=== PATIENT | female | born 1980 | race Hispanic/Latino ===

== ENCOUNTER 2018-11-10 05:26 | Emergency (ER) | payer OTHER ==
[2018-11-10 07:11] LABS: Absolute Lymphocytes (CBC) 0.7 K/uL (0.7-4.9); Absolute Monocytes 0.5 K/uL (0.1-1.3); Absolute Neutrophil 3.8 K/uL (1.8-8.0); Basophils % 0.2 % (0-1.3); Eosinophils % 1.6 % (0-4.4); Hematocrit 35.7 % (36.0-45.0); Lymphocytes % 14.1 % (15.3-44.8); MPV 9.3 fL (7.6-11.3); Monocytes % 9.5 % (3.3-12.3); RBC Red Blood Cell Count 3.97 M/uL (3.86-4.86)
[2018-11-10] MEDS ORDERED: ONDANSETRON 4 MG/2 ML VIAL ONE (07:11)
[2018-11-10] MEDS ORDERED: NA CHLORIDE 0.9% 1,000 ML ONE (07:11)
[2018-11-10 07:23] LABS: ALT/SGPT 17 U/L (12-78); AST/SGOT 14 U/L (15-37); Albumin 3.1 g/dL (3.4-5.0); Alkaline Phosphatase 58 U/L (45-117); BUN Blood Urea Nitrogen 12 mg/dL (7-18); Bicarbonate 26 mmol/L (21-32); Bilirubin Direct < 0.1 mg/dL (0-0.2); Bilirubin Total 0.2 mg/dL (0.2-1.0); Glucose Level 96 mg/dL (74-106); Lipase 62 U/L (73-393); Protein, Total 6.3 g/dL (6.4-8.2); Sodium Level 141 mmol/L (136-145)
[2018-11-10 08:21] LABS: Urine Blood 2+ (NEG); Urine Glucose NEGATIVE (NEG); Urine Protein NEGATIVE (NEG)
--- NOTE | 2018-11-10 09:11 | RAD REPORT ---
EXAM DESCRIPTION: CT - Abdomen Pelvis W Contrast - 11/10/2018 8:26 am CLINICAL HISTORY: Abdominal pain with nausea. COMPARISON: none. TECHNIQUE: Computed axial tomography of the abdomen pelvis was obtained. 100 cc Isovue-300 was admin istered intravenously. Oral contrast was not requested which limits evaluation of bowel. All CT scans are performed using dose optimization technique as appropriate and may include automated exposure control or mA/KV adjustment according to patient size. FINDINGS: The liver, spleen, pancreas, adrenal and left kidney appear unremarkable. A 1 millimeter nonobstructing right renal calculus There is no evidence of diverticulitis. 2 centimeter left ovarian cyst without significant free fluid IMPRESSION: 2 centimeter left ovarian cyst without significant free fluid
--- NOTE | 2018-11-10 09:22 | ER ---
Nurse's Notes [facility] Name: Ba Baxter Age: 38 yrs Sex: Female : 1980 Arrival Date: 11/10/2018 Time: 05:30 Bed 16 Private MD: Diagnosis: Constipation;Abdominal and pelvic pain Presentation: 11/10 05:30 Method Of Arrival: Ambulatory 05:30 Presenting complaint: Patient states: that on she started to have upper abd pain, fc decreased appetite, nausea, fatigue and vertigo. Has gotten worse. Just completed Macrobid 4 days ago for UTI. Transition of care: patient was not received from another setting of care. Onset of symptoms was November 08, 2018. Risk Assessment: Do you want to hurt yourself or someone else? Patient reports no desire to harm self or others. Initial Sepsis Screen: Does the patient meet any 2 criteria?. Care prior to arrival: on took Imodium, Pepto and Enema. and on Wed. took Pepto. 05:30 Acuity: BALDEV 3 07:24 Initial Sepsis Screen: Does the patient have a suspected source of infection? No. ls4 Patient's initial sepsis screen is negative. DISCHARGE SPECIALIST: 05:30 [facility] 10/29/2018 fc Historical: - Allergies: 05:58 No Known Allergies; fc - Home Meds: 05:58 Tecfidera 240 mg oral cpDR 1 cap 2 times per day [Active]; baclofen 20 mg Oral tab 2 fc tab nightly [Active]; Ambien 10 mg Oral tab 1 tab nightly [Active]; OxyContin 15 mg Oral TR12 1 tab every 12 hours [Active]; hydrocodone-acetaminophen 10-325 mg Oral tab 1 tab q 4 hrs prn [Active]; - PMHx: 05:58 Multiple Sclerosis; MVP; Depression; Neurogenic Bladder; fc - PSHx: 05:58 back surg; fc - Immunization history:: Last tetanus immunization: unknown, Flu vaccine is up to date. - Social history:: Smoking status: Patient/guardian denies using tobacco, Patient uses alcohol, occasionally. - Ebola Screening: : Patient negative for fever greater than or equal to 101.5 degrees Fahrenheit, and additional compatible Ebola Virus Disease symptoms Patient denies exposure to infectious person Patient denies travel to an Ebola-affected area in the 21 days before illness onset. Screenin:55 Abuse screen: Denies threats or abuse. Nutritional screening: No deficits noted. fc Tuberculosis screening: No symptoms or risk factors identified. Fall Risk None identified. Assessment: 06:50 General: Appears uncomfortable, Behavior is calm, cooperative. Pain: Complains of pain ed1 in right upper quadrant and left upper quadrant Pain currently is 9 out of 10 on a pain scale. Pain began 2-3 days ago. Neuro: Level of Consciousness is awake, alert, obeys commands, Oriented to person, place, time, situation, Reports dizziness. Cardiovascular: Denies chest pain, Heart tones S1 S2 present. Respiratory: Airway is patent Respiratory effort is even, unlabored, Respiratory pattern is regular, symmetrical, Breath sounds are clear bilaterally. GI: Abdomen is non-distended, Bowel sounds present X 4 quads. Abd is soft and non tender X 4 quads. Reports upper abdominal pain, nausea. : Reports completing Macrobid for UTI. EENT: No signs and/or symptoms were reported regarding the EENT system. Derm: Skin is intact, is healthy with good turgor, Skin is dry, Skin is normal, Skin temperature is warm. Musculoskeletal: Circulation, motion, and sensation intact. Vital Signs: 05:30 BP 102 / 57; Pulse 74; Resp 17; Temp 98(O); Pulse Ox 100% on R/A; Weight 68.04 kg (R); ed1 Height 5 ft. 5 in. (165.10 cm) (R); Pain 9/10; 08:57 BP 89 / 40; Pulse 66; Resp 16; Pulse Ox 99% ; ls4 05:30 Body Mass Index 24.96 (68.04 kg, 165.10 cm) ed1 ED Course: 05:30 Patient arrived in ED. es 05:30 Arm band placed on Patient placed in an exam room, on a stretcher. fc 05:46 Carmel Boyer, RN is Primary Nurse. ed1 05:54 Triage completed. fc 05:55 Patient has correct armband on for positive identification. Placed in gown. Bed in low fc position. Call light in reach. 05:55 No provider procedures requiring assistance completed. fc 06:05 Terrell Lion PA is PHCP. jr8 06:05 Iron Najera MD is Attending Physician. jr8 07:02 Primary Nurse role handed off by Carmel Boyer, RN ed1 07:05 Vivian Mccullough, RN is Primary Nurse. ls4 08:25 CT Abd/Pelvis - W/Contrast In Process Unspecified. EDMS 08:25 CT completed. Patient tolerated procedure well. Patient moved to CT via wheelchair. jg6 Patient moved back from CT. 08:58 Inserted saline lock: 22 gauge in left antecubital area, using aseptic technique. ls4 09:29 IV discontinued, intact, bleeding controlled, No redness/swelling at site. Pressure ls4 dressing applied. Administered Medications: 07:05 Drug: Zofran 4 mg Route: IVP; Site: right forearm; ls4 08:59 Follow up: Response: No adverse reaction; Marked relief of symptoms ls4 07:05 Drug: NS 0.9% 1000 ml Route: IV; Rate: 1000 ml; Site: right forearm; ls4 08:58 Follow up: IV Status: Completed infusion; IV Intake: 1000ml ls4 Intake: 08:58 IV: 1000ml; Total: 1000ml. ls4 Outcome: 09:21 Discharge ordered by . jr8 09:29 Discharged to home ambulatory, with family. ls4 09:29 Condition: stable 09:29 Discharge instructions given to patient, family, Instructed on discharge instructions, follow up and referral plans. medication usage, Demonstrated understanding of instructions, follow-up care, medications. 09:30 Patient left the ED. ls4 Signatures: Dispatcher [employer] Kaylen Brand Felicia, RN RN Carmel Boyer RN RN ed1 Terrell Lion PA PA jr8 Olga Cifuentes jg6 Vivian Mccullough, RN RN ls4 Corrections: (The following items were deleted from the chart) 05:56 05:30 68.04 kg Reported; Height 5 ft. 5 in. Reported; BMI: 24.9; Pain 9/10; ed1
--- NOTE | 2018-11-10 09:23 | EDPHYS ---
Physician Documentation [facility] Name: Ba Baxter Age: 38 yrs Sex: Female : 1980 Arrival Date: 11/10/2018 Time: 05:30 Bed 16 Private MD: ED Physician Iron Najera HPI: 11/10 08:52 This 38 yrs old Female presents to ER via Ambulatory with complaints of jr8 Abdominal Pain, Nausea, Vertigo, fatigue. 08:52 The patient presents with abdominal pain in the upper abdomen. Onset: The jr8 symptoms/episode began/occurred acutely, 3 day(s) ago, and became worse and became persistent. The symptoms do not radiate. Associated signs and symptoms: Pertinent positives: nausea and vomiting, constipation. The symptoms are described as crampy, waxing/waning. Modifying factors: The symptoms are alleviated by nothing, the symptoms are aggravated by nothing. Severity of pain: At its worst the pain was moderate in the emergency department the pain has improved mildly. The patient has not experienced similar symptoms in the past. The patient has not recently seen a physician. [employer]: 05:30 LMP 10/29/2018 fc Historical: - Allergies: 05:58 No Known Allergies; fc - Home Meds: 05:58 Tecfidera 240 mg oral cpDR 1 cap 2 times per day [Active]; baclofen 20 mg Oral tab 2 fc tab nightly [Active]; Ambien 10 mg Oral tab 1 tab nightly [Active]; OxyContin 15 mg Oral TR12 1 tab every 12 hours [Active]; hydrocodone-acetaminophen 10-325 mg Oral tab 1 tab q 4 hrs prn [Active]; - PMHx: 05:58 Multiple Sclerosis; MVP; Depression; Neurogenic Bladder; fc - PSHx: 05:58 back surg; fc - Immunization history:: Last tetanus immunization: unknown, Flu vaccine is up to date. - Social history:: Smoking status: Patient/guardian denies using tobacco, Patient uses alcohol, occasionally. - Ebola Screening: : Patient negative for fever greater than or equal to 101.5 degrees Fahrenheit, and additional compatible Ebola Virus Disease symptoms Patient denies exposure to infectious person Patient denies travel to an Ebola-affected area in the 21 days before illness onset. ROS: 08:52 Eyes: Negative for injury, pain, redness, and discharge, ENT: Negative for injury, jr8 pain, and discharge, Neck: Negative for injury, pain, and swelling, Cardiovascular: Negative for chest pain, palpitations, and edema, Respiratory: Negative for shortness of breath, cough, wheezing, and pleuritic chest pain, Back: Negative for injury and pain, MS/Extremity: Negative for injury and deformity, Skin: Negative for injury, rash, and discoloration, Neuro: Negative for headache, weakness, numbness, tingling, and seizure. 08:52 Abdomen/GI: Positive for abdominal pain, nausea and vomiting, constipation, abdominal cramps, Negative for abdominal distension, anorexia, dysphagia, hematemesis, black/tarry stool, rectal pain, rectal bleeding, bowel incontinence, flatulence. Exam: 08:52 Eyes: Pupils equal round and reactive to light, extra-ocular motions intact. Lids and jr8 lashes normal. Conjunctiva and sclera are non-icteric and not injected. Cornea within normal limits. Periorbital areas with no swelling, redness, or edema. ENT: Nares patent. No nasal discharge, no septal abnormalities noted. Tympanic membranes are normal and external auditory canals are clear. Oropharynx with no redness, swelling, or masses, exudates, or evidence of obstruction, uvula midline. Mucous membranes moist. Neck: Trachea midline, no thyromegaly or masses palpated, and no cervical lymphadenopathy. Supple, full range of motion without nuchal rigidity, or vertebral point tenderness. No Meningismus. Cardiovascular: Regular rate and rhythm with a normal S1 and S2. No gallops, murmurs, or rubs. Normal PMI, no JVD. No pulse deficits. Respiratory: Lungs have equal breath sounds bilaterally, clear to auscultation and percussion. No rales, rhonchi or wheezes noted. No increased work of breathing, no retractions or nasal flaring. Back: No spinal tenderness. No costovertebral tenderness. Full range of motion. Skin: Warm, dry with normal turgor. Normal color with no rashes, no lesions, and no evidence of cellulitis. MS/ Extremity: Pulses equal, no cyanosis. Neurovascular intact. Full, normal range of motion. Neuro: Awake and alert, GCS 15, oriented to person, place, time, and situation. Cranial nerves II-XII grossly intact. Motor strength 5/5 in all extremities. Sensory grossly intact. Cerebellar exam normal. Normal gait. 08:52 Abdomen/GI: Inspection: abdomen appears normal, Bowel sounds: active, all quadrants, Palpation: soft, in all quadrants, mild abdominal tenderness, in the right lower quadrant and left lower quadrant and mid abdomen just superior to umbilicus region, mass, is not appreciated, rebound tenderness, is not appreciated, voluntary guarding, is not appreciated, involuntary guarding, is not appreciated, no appreciated organomegaly, Indicators: McBurney's point is not tender, Jacobo's sign is negative, Rovsing's sign is negative, Liver: tenderness, is not appreciated. Vital Signs: 05:30 BP 102 / 57; Pulse 74; Resp 17; Temp 98(O); Pulse Ox 100% on R/A; Weight 68.04 kg (R); ed1 Height 5 ft. 5 in. (165.10 cm) (R); Pain 9/10; 08:57 BP 89 / 40; Pulse 66; Resp 16; Pulse Ox 99% ; ls4 05:30 Body Mass Index 24.96 (68.04 kg, 165.10 cm) ed1 MDM: 06:18 Patient medically screened. jr8 09:22 Differential diagnosis: bowel obstruction, cholecystitis, Cholelithiasis, jr8 diverticulitis, gastritis, gastroesophageal reflux disease, non-specific abd pain, pancreatitis, Ureterolithiasis. Data reviewed: vital signs, nurses notes, lab test result(s), radiologic studies, CT scan. Data interpreted: Pulse oximetry: on room air is 99 %. Interpretation: normal. Counseling: I had a detailed discussion with the patient and/or guardian regarding: the historical points, exam findings, and any diagnostic results supporting the discharge/admit diagnosis, lab results, radiology results, the need for outpatient follow up, a family practitioner, a java security engineer, to return to the emergency department if symptoms worsen or persist or if there are any questions or concerns that arise at home. Response to treatment: the patient's symptoms have markedly improved after treatment. 11/10 06:36 Order name: Basic Metabolic Panel; Complete Time: 07:47 11/10 06:36 Order name: CBC with Diff; Complete Time: 07:47 11/10 06:36 Order name: Creatinine for Radiology; Complete Time: 07:47 11/10 06:36 Order name: Hepatic Function; Complete Time: 07:47 11/10 06:36 Order name: Lipase; Complete Time: 07:47 11/10 07:59 Order name: Urine Dipstick--Ancillary (enter results); Complete Time: 08:29 11/10 06:36 Order name: IV Saline Lock; Complete Time: 07:58 11/10 06:36 Order name: Labs collected and sent; Complete Time: 07:58 11/10 06:36 Order name: Urine Test (obtain specimen); Complete Time: 07:58 11/10 06:36 Order name: Urine Dipstick-Ancillary (obtain specimen); Complete Time: 07:58 11/10 07:59 Order name: Urine --Ancillary (enter results); Complete Time: 08:29 11/10 08:10 Order name: CT Abd/Pelvis - W/Contrast; Complete Time: 09:13 jr8 Administered Medications: 07:05 Drug: Zofran 4 mg Route: IVP; Site: right forearm; ls4 08:59 Follow up: Response: No adverse reaction; Marked relief of symptoms ls4 07:05 Drug: NS 0.9% 1000 ml Route: IV; Rate: 1000 ml; Site: right forearm; ls4 08:58 Follow up: IV Status: Completed infusion; IV Intake: 1000ml ls4 Disposition: 11/10/18 09:21 Discharged to Home. Impression: Constipation, Abdominal and pelvic pain. - Condition is Stable. - Discharge Instructions: Abdominal Pain, Adult, Constipation, Adult. - Prescriptions for Zofran 4 mg Oral Tablet - take 1 tablet by ORAL route every 12 hours As needed; 20 tablet. Miralax 17 gram/dose Oral - take 1 packet by ORAL route once daily dilute powder in 8 ounces of water or juice; 1 box. - Medication Reconciliation Form, Thank You Letter, Antibiotic Education, Prescription Opioid Use form. - Follow up: Private Physician; When: 2 - 3 days; Reason: Recheck today's complaints, Continuance of care, Re-evaluation by your physician. - Problem is new. - Symptoms have improved. Addendum: 11/13/2018 19:31 Co-signature as Attending Physician, Iron Najera MD. g s Signatures: Dispatcher [employer] EDVT Ruth Krishnamurthy RN RN Terrell Vincent PA PA jr8 Iron Najera MD MD gs Stewart, Lisa, RN RN ls4 Corrections: (The following items were deleted from the chart) 11/10 09:30 09:21 11/10/2018 09:21 Discharged to Home. Impression: Constipation; Abdominal and ls4 pelvic pain. Condition is Stable. Forms are Medication Reconciliation Form, Thank You Letter, Antibiotic Education, Prescription Opioid Use. Follow up: Private Physician; When: 2 - 3 days; Reason: Recheck today's complaints, Continuance of care, Re-evaluation by your physician. Problem is new. Symptoms have improved. jr8
[2018-11-10 09:43] VITALS: BP 89/40; O2SAT 99
[2018-11-10 09:45] VITALS: TEMP 98
== END 2018-11-10 09:30 | disposition home or self-care (01) ==
LOC: ER 05:26
DX: K59.00 Constipation, unspecified (principal); G35 Multiple sclerosis; F32.9 Major depressive disorder, single episode, unspecified
CPT/HCPCS: 96361; 85025; 80048; 36415; 81025; 80076; 81003; 83690; 74177; 96374; 99284; Q9967; J7030; J2405